=== PATIENT | female | born 1990 | race African-American/Black ===

== ENCOUNTER 2021-08-16 07:06 | Emergency (ER) | payer OTHER ==
[~2021-08-16] VITALS: Ht 154.9 cm; Wt 74.4 kg
[2021-08-16] MEDS ORDERED: VENTOLIN HFA 1818 GM INH (09:42)
[2021-08-16] MEDS ORDERED: PREDNISONE 20 M20 M1 PO (09:42)
[2021-08-16 09:59] VITALS: BP 113/63
--- NOTE | 2021-08-16 10:03 | EKG ---
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 : 1990 Requested By: Jatinder Boudreaux Order Number: [id number] MD: Jere De La Rosa Measurements Intervals [place] Rate: 67 P: 32 MD: 193 QRS: 35 QRSD: 108 T: 40 QT: 419 QTc: 443 Interpretive Statements Sinus rhythm No previous ECG available for comparison Electronically Signed On 08-16-2021 9:08:00 [employer] by Jere De La Rosa [email or web address] <ELECTRONICALLY SIGNED> By: Jere De La Rosa MD, [facility] 08/16/21907 9 9 Jere De La Rosa MD, FACC /EPI
== END 2021-08-16 10:00 | disposition home or self-care (01) ==
LOC: M.ERS 07:06
DX: R07.9 Chest pain, unspecified (principal); R06.02 Shortness of breath; R05.9 Cough, unspecified; R68.83 Chills (without fever); Z91.013 Allergy to seafood; Z86.16 Personal history of COVID-19